=== PATIENT | male | born 1940 ===

== ENCOUNTER 2017-10-31 17:13 | Inpatient (IN) | payer MEDICARE ==
[2017-10-31] MEDS ORDERED: Aspirin 300 MG Suppository ONE (17:22)
[2017-10-31 17:37] LABS: Hemoglobin 16.3 g/dL (14.0-18.0); Mean Corpuscular HGB CONC 34.7 g/dL (32.0-36.0); Mean Corpuscular Hemoglobin 30.8 pg (27.0-31.0); Mean Corpuscular Volume 88.9 fL (78.0-98.0); Mean Platelet Volume 7.8 fL (7.4-10.4); Platelet Count 248 thou/uL (130-400); RBC Distribution Width 12.9 % (11.5-14.5); White Blood Cell (WBC) Count 16.4 thou/uL (4.8-10.8)
[2017-10-31 17:55] LABS: Band 6 % (5-11); Lymphocytes 7 % (21-51); MDiff Complete? YES; Monocytes 5 % (0-10); Neutrophil 82 % (42-75); PLT Morphology Comment Appears Adequate; RBC Morphology Normal; Vacuoles SLIGHT
[2017-10-31] MEDS ORDERED: Succinylcholine Chloride 20 MG/ML 10 ml SYRINGE FS ONE (17:59)
[2017-10-31 18:03] LABS: CKMB 0.5 ng/mL (0-6.6); Troponin I Less than 0.010 ng/mL (< 0.028)
[2017-10-31 18:08] LABS: ALT (SGPT) 13 U/L (8-55); AST (SGOT) 18 U/L (5-34); Albumin 4.7 g/dL (3.4-4.8); Alkaline Phosphatase 65 U/L (40-150); Anion Gap 17 mmol/L (10-20); BUN (Urea Nitrogen) 21 mg/dL (8.4-25.7); Bilirubin, Total 1.1 mg/dL (0.2-1.2); CK (CPK) 51 U/L (30-200); Calc. Creatinine Clearance 0 mL/min (70-130); Calcium 9.8 mg/dL (7.8-10.44); Carbon Dioxide 21 mmol/L (23-31); Chloride 104 mmol/L (98-107); Estimated GFR-MDRD 58; INR-International Normal Ratio 1.1; PTT 29.3 SEC (22.9-36.1); Potassium 4.4 mmol/L (3.5-5.1); Protein, Total 7.7 g/dL (5.8-8.1); Prothrombin Time 14.1 SEC (12.0-14.7); Sodium 138 mmol/L (136-145)
[2017-10-31] MEDS ORDERED: Fentanyl 100 MCG/2 ML VIAL ONE (18:15)
--- NOTE | 2017-10-31 18:26 | CT ---
CT CERVICAL SPINE NONCONTRAST: 10/31/17 HISTORY: 77-year-old male status post cervical trauma from fall. FINDINGS: There are no jumped or perched facets. There is no evidence of acute fracture. The vertebral body h eights are maintained. There is no prevertebral soft tissue swelling. IMPRESSION: No evidence of acute fracture or acute traumatic subluxation. gale [] POS: REED
[2017-10-31] MEDS ORDERED: fentaNYL Citrate/PF 2,000 MCG in Sodium Chloride 0.9% 60 ML IV SCH ×2 (18:39→19:32)
[2017-10-31 18:46] LABS: Actual Bicarbonate (HCO3a) 18.7 mEq/L (22-28); Base Excess (BEa) -5.3 mEq/L (-2.0 to +3.0); CO2 Tension 32.7 mmHg (35.0-45.0); Hemoglobin (Hb) 15.9 g/dL (14.0-18.0); pH, Arterial 7.38 (7.35-7.45)
[2017-10-31 18:47] LABS: Analyzer IN Cardio ER; Calcium, Ionized 1.2 mmol/L (1.12-1.30); Puncture Site LRA
[2017-10-31 18:47] LABS: Glucose 147 mg/dL (83-110)
[2017-10-31 18:48] LABS: ALV-art Gradient 241.925 (0-20)
[2017-10-31 19:29] LABS: Bilirubin Negative (Negative); Blood, Urine Large (Negative); Clarity CLOUDY (Clear); Glucose, Urine (Dipstick) Negative (Negative); Leukocyte Small (Negative); Nitrite Positive (Negative); Protein, Urine (Dipstick) Negative (Neg-Trace); Specific Gravity, Urine 1.025 (1.002-1.036); Urobilinogen 0.2 mg/dL (0.2-1.0); pH, Urine 5.5 (5.0-9.0)
[2017-10-31 19:32] LABS: Hyaline Casts/LPF 0-3 HYALINE CAST LPF (0-3 Hyaline); RBC/HPF 21-50 HPF (0-3); Squamous Epithelial 0-3 HPF (0-3)
[2017-10-31] MEDS ORDERED: Fentanyl BOLUS 250 ML IVPB PRN (19:32)
[2017-10-31] MEDS ORDERED: Propofol 1,000 MG/100 ML VIAL IV PRN (19:32)
[2017-10-31] MEDS ORDERED: Lorazepam 2 MG/ML VIAL SLOW IVP PRN (19:32)
[2017-10-31] MEDS ORDERED: DISCONTINUE PREVIOUS NARCOTIC PAIN MEDICATIONS AND BENZODIAZEPINES FS SCH (19:32)
[2017-10-31] MEDS ORDERED: Propofol BOLUS 1,000 MG/100 ML VIAL IV PRN (19:32)
[2017-10-31 19:34] LABS: Yeast-AUWi Flag 164.8 (0-25.0)
--- NOTE | 2017-10-31 19:38 | RAD ---
FRONTAL VIEW CHEST: 10/31/17 COMPARISON: 07/20/09 INDICATION: Altered mental status. FINDINGS: There is enlargement of the cardiac silhouette and pulmonary vasculature with interstitial reticulono dular opacities bilaterally. Numerous extrinsic artifacts limit visualization. Patient is rotated obs curing detail. IMPRESSION: Findings indicate decompensated CHF. Superimposed infectious pneumonitis not excluded. Recommend clinical correlation as well as imaging followup. POS: REED
[2017-10-31 19:43] LABS: Bacteria/HPF 2+ HPF (None Seen); Renal Epithelial None Seen HPF (0-3); Transitional Epithelial NONE SEEN HPF (0-3); Yeast-All Forms None Seen HPF (None Seen)
--- NOTE | 2017-10-31 19:45 | CT ---
CT BRAIN NONCONTRAST: DATE: 10/31/17 TIME: 5:31 p.m. HISTORY: 77-year-old male with altered mental status. COMPARISON: 07/20/09. FINDINGS: There is a new finding of a very large region of moderately low attenuation involving right frontal, parietal, and temporal lobes. This is confluent and inseparable from a moderately elongated (in anter oposterior dimension) region of similar moderately low attenuation of the right parasagittal frontal and parietal lobes. These represent large and moderately large, acute or subacute infarctions in the right MCA and right EDILMA territories, respectively. There is a moderate sized region of left lateral temporoparietal region of low attenuation which prob ably represents encephalomalacia and gliosis, consistent with a nonacute infarction in the left MCA t erritory, favored to be old. There is a dilated [place] space at the inferior aspect of the le ft basal ganglia which should not be mistaken for an old lacunar infarction. No obstructive hydroceph alus, acute intracranial hemorrhage, mass effect, midline shift, or extra-axial fluid collection. No depressed calvarial fracture. The paranasal sinuses and the bilateral tympanomastoid cavities are rodriguez ssly clear, except for polypoid mucosal thickening throughout the right sphenoid air cell. IMPRESSION: 1. Large acute or subacute infarction in the right middle cerebral artery territory. 2. Moderately large acute or subacute infarction in the right anterior cerebral artery territory . 3. Moderate sized infarction, probably old, in the left middle cerebral artery territory. 4. No acute intracranial hemorrhage or high grade mass effect. JEREMIAS Duncan POS: REED
[2017-10-31] MEDS: Sodium Chloride 0.9% 1,000 ML IV SCH (19:55)
[2017-10-31 20:02] VITALS: BMI 26.0
--- NOTE | 2017-10-31 20:20 | RAD ---
FRONTAL VIEW CHEST: 10/31/17 COMPARISON: 07/20/09. INDICATION: Post intubation. FINDINGS: There is an endotracheal tube with tip overlying the tracheal air column just cephalad to the level o f the thoracic inlet. The cardiomediastinal silhouette and pulmonary vasculature are prominent. No si gnificant effusion or discrete pneumothorax. Extrinsic artifacts do limit detail. Incompletely assess ed, there is a coiled catheter tip overlying the mediastinum. This may reside within a large hiatal h ernia. IMPRESSION: 1. Endotracheal tube overlying the tracheal air column at the cephalad aspect of the thoracic in let. 2. CHF. 3. Enteric catheter likely coiled within a large hiatal hernia. Recommend advancement and follow up imaging for continued assessment. POS: REED
[2017-10-31] MEDS: Piperacillin/Tazobactam 3.375 GM in Sodium Chloride 0.9% 100 ML IVPB SCH (20:25)
--- NOTE | 2017-10-31 21:01 | HP ---
CHIEF COMPLAINT: Altered mental status. HISTORY OF PRESENT ILLNESS: The patient is a 77-year-old male with a past medical history of possibl e hypertension who was found unconscious in his home today. All the history is being obtained from [facility] staff and per records. Apparently, the patient was alert on Tuesday after the son and spoke with the patient. The patient apparently did not come out to take his newspaper, so the neighbors k ind of went in to see what was going on, found the patient sitting on the chair unconscious. At this time, EMS was called. EMS brought the patient into the ER. Apparently, I was told that the patient 's eyes were open; however, he was not following any commands. The patient was intubated in the ER f or airway protection. He did have a CT of the brain which indicated right MCA and EDILMA stroke. Jordin miller also had a C-spine CAT scan done which was negative. The patient also had a chest x-ray done wh h indicated some congestion versus infiltrate. PAST MEDICAL HISTORY: Possible hypertension; however, unable to verify. SOCIAL HISTORY: Unknown, patient is unable to provide this and no family member around. FAMILY HISTORY: Unknown. No family member around. ALLERGIES: No known drug allergies. MEDICATIONS: I was told the patient takes metoprolol. REVIEW OF SYSTEMS: Unable to obtain. PHYSICAL EXAMINATION: VITAL SIGNS: As of the following, temperature of 100.2, O2 saturations 100% on FIO2 of 40. Blood pr essure 125/67, pulse of 63, respirations of 16. GENERAL: He is intubated, unresponsive. HEENT: Normocephalic, atraumatic. LUNGS: Clear to auscultation. No rhonchi or wheezes noted. CARDIOVASCULAR: S1, S2 present. No murmurs, rubs or gallops. ABDOMEN: Soft. Bowel sounds are present. NEUROLOGIC: Unable to do neuro exam. SKIN: No rashes or lesions noted. LABORATORY DATA: As of the following: He does have sodium of 138, potassium of 4.4, chloride of 104 , bicarbonate of 21, anion gap of 17, glucose of 147, does have a lactic acid of 2.6. WBCs of 16.4, hemoglobin of 16.3, hematocrit of 47.1, platelets of 248. His pH was 7.38 with a pO2 of 147 and a CO 2 of 32.7. ASSESSMENT AND PLAN: The patient is a very pleasant 77-year-old male who was found unresponsive. 1. Acute stroke, unknown timing. Patient was last seen normal on Tuesday. Neurosurgery and Neurol ogy both have been consulted. We will start the patient on stroke protocol, also currently patient i s intubated. 2. Possible aspiration pneumonia. The patient does have a mild leukocytosis and has some lactic aci dosis which could be secondary to being unconscious; however, prophylactically we will start the malaika ent on some antibiotics to cover for aspiration pneumonia. 3. Hypertension. Currently, the patient's blood pressure is stable. We will continue to monitor. 4. Lactic acidosis, most likely secondary to being unconscious. Again, we will continue to monitor. We will start some IV hydration and also will continue antibiotics. 5. Deep venous thrombosis prophylaxis. We will put the patient on sequential compression devices or heparin subQ. I did tell the ER to notify the cane flume watchman of the patient's admission and the family is on their way. I will get more information once family arrives.
--- NOTE | 2017-10-31 21:24 | CON ---
DATE OF CONSULTATION: 10/31/2017 ATTENDING PHYSICIAN: Trell Peng M.D. HISTORY OF PRESENT ILLNESS: The patient is a 77-year-old male with a past medical history of hypertension and hyperlipidemia who presented to the emergency department per EMS after being found down by his family. History obtained through EMS and ER records. No family at bedside. The patient was reportedly last seen normal on Tuesday. Upon arrival the patient had a GCS of 6, E1, V1, M3. CT head was done shortly after arrival and the patient was found to have a large right MCA infarct. He was intubated for airway protection and evaluated with additional lab work, which was also notable for elevated lactic acid of 2.6, elevated white blood cell count of 16,000 with a left shift. Neurology was consulted for further evaluation of his acute infarct and they also recommended neurosurgical consultation secondary to infarcts significant size. I am seeing the patient at the bedside. His exam is limited by his recent intubation and medication administration. His pupils are small, equal and sluggish. He has a positive gag reflex. He has a positive corneal reflex. He is posturing. He has decorticate posturing in the upper extremities, but withdraws briskly over the lower extremities. He is overbreathing in the ventilator. PAST MEDICAL HISTORY: Hypertension, hyperlipidemia. PAST SURGICAL HISTORY: Unobtainable. SOCIAL HISTORY: Unobtainable. ALLERGIES: The patient has no known drug allergies. REVIEW OF SYSTEMS: Unobtainable secondary to patient condition. PHYSICAL EXAMINATION: VITAL SIGNS: Pulse is 64, BP is 143/82, respiration rate is 18. Patient is currently being mechanically ventilated. He is 100% on the ventilator. HEAD: Normocephalic, atraumatic. EYES: Pupils are equal, small, sluggish. ENT: The patient currently has an endotracheal intubation tube in place. He has a positive gag reflex. CARDIOVASCULAR: Regular rate and rhythm. PULMONARY: The patient has symmetric chest expansion. He is currently being mechanically ventilated. MUSCULOSKELETAL: No obvious deformities. Good capillary refill throughout. NEUROLOGIC: GCS is 6, E1, V1, M4. ASSESSMENT AND PLAN: This is a 77-year-old male, found down today, last seen normal [address] head is notable for a large right middle cerebral artery infarct. I reviewed these images with Dr. Peng as well as discussed the patient's presentation and current condition. His CT appears to be mature at this time. There is no midline shift or mass effect. At this time, we have no acute neurosurgical recommendations, but we are available for any additional questions or concerns. Please reach out to Neurosurgery if these would arise. AKI
[2017-11-01] MEDS: Piperacillin/Tazobactam 3.375 GM in Sodium Chloride 0.9% 100 ML IVPB SCH ×4 (02:09→20:00)
[2017-11-01] MEDS ORDERED: Acetaminophen 325 MG TAB PO PRN (02:29)
[2017-11-01 05:35] LABS: Cardiac Risk 4.4 (Less than 4.5)
--- NOTE | 2017-11-01 08:13 | PDOC.EVN ---
Event Note - Event Note Event Note: spoke with neurosurgery and no intervention from their end. will continue to monitor.
[2017-11-01 08:35] LABS: Actual Bicarbonate (HCO3a) 20.6 mEq/L (22-28); Base Excess (BEa) -2.3 mEq/L (-2.0 to +3.0); CO2 Tension 30.4 mmHg (35.0-45.0); Hemoglobin (Hb) 14.7 g/dL (14.0-18.0); pH, Arterial 7.45 (7.35-7.45)
[2017-11-01 08:36] LABS: Calcium, Ionized 1.1 mmol/L (1.12-1.30); Puncture Site RRA
[2017-11-01] MEDS: Sodium Chloride 0.9% 1,000 ML IV SCH (09:50)
--- NOTE | 2017-11-01 11:17 | MRI ---
HEAD CT WITHOUT CONTRAST: HISTORY: The patient was found down yesterday, unresponsive. COMPARISON: None. TECHNIQUE: A brain MRI is performed without intravenous Gadolinium administration. Multisequential, multiplanar imaging is performed. FINDINGS: Calvarium has a normal marrow signal intensity. Midline brain parenchymal structures are unremarkabl e. There is extensive T2 and FLAIR hyperintensity with associated restricted diffusion involving the ant erior corpus callosum, medial left frontal lobe, the majority of the right MCA and EDILMA distribution. Multifocal infarct is suspected. No evidence of infarction in the posterior fossa. There is mild mass effect upon the right ventricular system due to edema from right cerebral infarct. No hemorrhage on the axial gradient echo sequence. Mild mucosal disease involving the paranasal sinuses. Questionable decreased flow void in the mid ri ght M1 segment on the axial T2 weighted images. Additionally, there appears to be a decreased flow v oid possibly in the right paraclinoid segment. There is peripheral T2 hyperintensity involving the d istal cervical and cavernous portion of the right internal carotid artery. Etiology and significance is uncertain. The possibility of a right carotid dissection cannot be excluded. IMPRESSION: 1. Extensive bilateral cerebral infarcts as described above. 2. Abnormality involving the distal cervical right internal carotid artery as well as the intracrani al right internal carotid artery as described above. POS: REED
--- NOTE | 2017-11-01 11:23 | CON ---
DATE OF CONSULTATION: 11/01/2017 HISTORY: This is a 77-year-old gentleman. History obtained from the patient's [id number]. He sees a Dr. Pop at [facility]. He was last seen by anybody at 12 on Tuesday, he went out with his brot her for lunch. He was doing well. He has found home unresponsive. On arrival to the ER he was intu bated to protect his airways. He has had a large CVA. According to his [id number] the patient does not smoke, does not drink. PAST MEDICAL HISTORY: Pertinent for hypertension. PAST SURGICAL HISTORY: Apparently some kind of a right leg fracture with a candida inside. The patient has got scoliosis, but he is very active. SOCIAL/FAMILY HISTORY: He worked at [employer] for many years. MEDICATIONS: From home includes mainly blood pressure medication. List given by the [id number] includes bisoprolol 5/6.25, lisinopril 40, simvastatin 20. ALLERGIES: None. REVIEW OF SYSTEMS: Otherwise unobtainable, he is intubated on the vent, unresponsive. PHYSICAL EXAMINATION: VITAL SIGNS: Pulse 51, blood pressure 120/80, sats 90%, respiration 14. HEENT: Pupils are equal. CHEST: Chest reveals no wheezing or crackles. CARDIAC: Normal S1, S2, no gallops. ABDOMEN: Soft. NEUROLOGIC: Unresponsive. LABORATORY: His glucose is 122. His chest x-ray shows a large hiatal hernia, maybe some cephalization. His pO2 is 80, pCO2 30, pH 7.45, rate of 14, 30% FiO2. Creatinine 1.2. His CT of his head showed a large subacute infarct in the right middle cerebral artery territory and old left middle cerebral artery infarct. IMPRESSION: 1. Right middle cerebral artery infarct. 2. 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 3. Hypertension. 4. Large hiatal hernia. 5. Possibly aspiration. PLAN: Pulmonary-street, continue vent support. He is scheduled for an MRI. Will await input from Davey pierce. Comfort care. Prognosis guarded. Forty-five minutes critical care time.
--- NOTE | 2017-11-01 12:13 | PRG ---
DATE OF SERVICE: 11/01/2017 This is a 30 minute initial hospital visit note in which 30 minutes were spent in review of the imagi ng, record, evaluation, examination of patient, and formulation of a plan. Greater than 50% of the t barb was spent in counseling. CHIEF COMPLAINT: Large right anterior middle cerebral artery infarct with history of left middle cer ebral artery infarct. HISTORY OF PRESENT ILLNESS: Mr. Bal is a 77-year-old man who was found down, hemiplegic on the left side. He has a history in 07/2009 with a period of aphasia and imaging at that time revealed fi ndings consistent with a left temporal stroke. He recovered well from this with mild dysphasia; corrales blaze, a review of his head CT and MRI demonstrates essentially complete diffusion restriction througho ut the right hemisphere involving the anterior and middle cerebral artery distribution and only a por tion of brain not affected essentially as the right posterior cerebral artery distribution or medial occipital lobe. He has T2 shine through in the left temporal region related to encephalomalacia from his remote stroke. We have been consulted regarding neurosurgical option. PHYSICAL EXAMINATION: He is intubated. Sedation has been off since this morning. He very weakly lo calizes in the bilateral upper extremities, but this is much more delayed in the left compared to the right. He has positive corneal response in the right, very weak in the left. His pupils are equal, symmetric, round, reactive at 3-2 mm. IMPRESSION AND PLAN: I have let the patient's ijkzduvf-[id number] know that I would not at all recommend a hemicraniectomy. The size of infarct, his age and the fact that he has had bilateral strokes hany khushi the likelihood of a very poor outcome. I have offered my condolences in this regard and again w ould not recommend any neurosurgical intervention. I should note he is already demonstrating cerebra l edema with midline shift and mass effect and as such, I suppose mannitol may be used while the malaika ent's son who is a industrial truck driver, is en route, but I have let the family present know that the typical course here is that the brain will continue to swell and the mass effect will increase and a ventral herniation will result with the patient succumbing to the pathology. DIAGNOSES: 1. 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 2. History of left middle cerebral artery stroke.
[2017-11-02] MEDS: Sodium Chloride 0.9% 1,000 ML IV SCH ×2 (01:53→11:39)
[2017-11-02] MEDS: Piperacillin/Tazobactam 3.375 GM in Sodium Chloride 0.9% 100 ML IVPB SCH ×4 (02:00→20:00)
--- NOTE | 2017-11-02 06:14 | PDOC.PN ---
- Subjective Encounter Start Date: 11/01/17 Encounter Start Time: 10:00 Subjective: pt intubated, daughter in law by bedside updated - Objective Resuscitation Status: Resuscitation Status DNR:Do Not Resuscitate Vital Signs & Weight: Vital Signs (12 hours) Temp Pulse Resp BP 11/02/17 04:00 98.8 F 11/02/17 02:37 68 134/66 11/02/17 02:00 18 11/02/17 00:00 98.8 F 11/01/17 22:15 66 120/65 11/01/17 22:00 17 11/01/17 18:37 67 140/57 L Weight Admit Weight 192 lb 0.362 oz Weight 192 lb 0.362 oz Most Recent Monitor Data Heart Rate from ECG 64 NIBP 126/67 NIBP BP-Mean 108 Respiration from ECG 17 SpO2 96 I&O: 10/31/17 11/01/17 11/02/17 06:59 06:59 06:59 Intake Total 1058.4 948 Output Total 858 1043 Balance 200.4 -95 Result Diagrams: 10/31/17 17:22 10/31/17 17:22 Additional Labs: Accuchecks 11/02/17 11/01/17 11/01/17 01:50 16:56 11:41 POC Glucose 116 H 126 H 135 H Phys Exam - Physical Examination Neck: no nodes, no JVD, supple, full ROM Respiratory: no wheezing, no rales, no rhonchi, wheezing present, clear to auscultation bilateral Cardiovascular: RRR, no significant murmur, no rub, gallop, irregular Gastrointestinal: soft, non-tender, no distention, positive bowel sounds mild withdrawal on the left side to deep pain stimuli Dx/Plan (1) Acute respiratory failure Code(s): J96.00 - ACUTE RESPIRATORY FAILURE, UNSP W HYPOXIA OR HYPERCAPNIA Status: Acute (2) Ischemic stroke Code(s): I63.9 - CEREBRAL INFARCTION, UNSPECIFIED Status: Acute (3) Aspiration pneumonia Code(s): J69.0 - PNEUMONITIS DUE TO INHALATION OF FOOD AND VOMIT Status: Acute (4) Acute right MCA stroke Code(s): I63.511 - CEREB INFRC D/T UNSP OCCLS OR STENOS OF RIGHT MID CEREB ART Status: Acute (5) HTN (hypertension) Code(s): I10 - ESSENTIAL (PRIMARY) HYPERTENSION Status: Acute - Plan pt intubated, mri pending -: updated daughter in law -: over all outcome poor -: possible for cerebral edema given such a large area of stroke. * . Review of Systems - Review of Systems Other: pt intubated - Medications/Allergies Allergies/Adverse Reactions: Allergies Allergy/AdvReac Type Severity Reaction Status Date / Time No Known Allergies Allergy Verified 10/31/17 20:07 Medications: Current Medications Acetaminophen (Tylenol) 650 mg PO Q6H PRN PRN Reason: Fever or MILD Pain (1-3) Last Admin: 11/01/17 02:45 Dose: 650 mg Piperacillin Sod/Tazobactam (Sod 3.375 gm/ Sodium Chloride) 100 mls @ 200 mls/ hr IVPB 0200,0800,1400,2000 BRANDYN Last Admin: 11/01/17 20:00 Dose: 100 mls Sodium Chloride (Normal Saline 0.9%) 1,000 mls @ 75 mls/hr IV .[id number] BRANDYN Last Admin: 11/02/17 01:53 Dose: 1,000 mls Fentanyl Citrate 2,000 mcg/ (Sodium Chloride) 100 mls @ 0 mls/hr IV INF BRANDYN; Protocol Stop: 11/30/17 19:32 Fentanyl Citrate (Fentanyl Bolus) 250 mls @ 0 mls/hr IVPB PRN PRN PRN Reason: Breakthrough pain/agitation Stop: 11/30/17 19:32 Lorazepam (Ativan) 2 mg SLOW IVP Q1H PRN PRN Reason: Breakthrough agitation Stop: 11/30/17 19:32 Morphine Sulfate (Morphine Sulfate) 2 mg SLOW IVP Q1H PRN PRN Reason: BREAKTHROUGH PAIN/AGITATION Stop: 11/30/17 19:32 Discontinue Previous Narcotic Pain Medications And Benzodiazepines 1 each FS .ONE BRANDYN Stop: 11/30/17 19:32 Propofol (Diprivan) 1,000 mg IV INF PRN; Protocol PRN Reason: TO ACHIEVE GOAL RASS Stop: 11/30/17 19:32 Propofol (Diprivan Bolus) 20 mg IV Q5MIN PRN PRN Reason: BREAKTHROUGH AGITATION Stop: 11/30/17 19:32 Sodium Chloride (Flush - Normal Saline) 10 ml IVF PRN PRN PRN Reason: Saline Flush
--- NOTE | 2017-11-02 06:39 | CON ---
DATE OF CONSULTATION: 11/01/2017 REASON FOR CONSULTATION: Stroke. PRIMARY CARE PHYSICIAN: Dr. Marlyn Stallworth HISTORY OF PRESENT ILLNESS: Mr. Bal is a 77-year-old male who has been consulted for evaluation of stroke. History is obtained from the patient's medical records as well as the patient' s family. Apparently the patient was found unconscious in his home. He was in his normal state of h ealth on Tuesday when son and his spoke with him. On Tuesday, he did not come out to take his _ ___ with the neighbor. Neighbors went to see what was going on and found the patient sitting on the chair unresponsive. At that time EMS was called and he was brought to [facility]. Af ter arriving to the [facility] he was intubated to provide airway protection. He had CT head without contrast done, which showed a large area of hyperdensity involving the right MCA and EDILMA territory with vasogenic edema and midline shift. PAST MEDICAL HISTORY/PAST SURGICAL HISTORY/SOCIAL HISTORY/FAMILY HISTORY/CURRENT MEDICATIONS/ALLERGIE S: Could not be obtained. REVIEW OF SYSTEMS: Unable to perform. PHYSICAL EXAMINATION: VITAL SIGNS: Blood pressure of 121/55, pulse of 60, respirations of 19 on mechanical ventilation, te mperature of 99.9. GENERAL: Intubated, nonsedated male in no apparent distress. RESPIRATORY: Clear to auscultation bilaterally. CARDIOVASCULAR: Regular rate and rhythm. NEUROLOGIC: Mental status: The patient is intubated and not sedated. He is nonresponsive to verbal or noxious stimuli. Cranial nerves: Pupils are 3 mm and reactive. He has a positive corneal refle x bilaterally. He does breathe over the ventilator machine. There is a positive cough and gag refle x present. Motor exam showed flaccid left upper and left lower extremity. He spontaneously moves ri ght upper and right lower extremity. He was squeezing my hand with his right hand involuntarily with a very good strength. He did not have any response to nailbed pressure on the left upper and left lo wer extremity. LABORATORY DATA: Reviewed, which included CBC, CMP and urinalysis, which is significant for WBC of 1 6.4. Lactic acid of 2.6. Urinalysis with positive nitrites, small leukocyte esterase, 11-20 WBC and 2+ bacteria, otherwise unremarkable. IMAGING STUDIES: MRI brain without contrast was reviewed, which showed large right MCA and EDILMA distr ibution ischemic infarct with worsening edema and midline shift. IMPRESSION: 1. Large right MCA and EDILMA territory ischemic infarct. 2. Cerebral edema secondary to #1. ASSESSMENT AND PLAN: Mr. Bal is a 77-year-old male who presented after being found un responsive. He is found to have large right MCA and EDILMA territory ischemic infarct with resulting va sogenic edema and midline shift. This is likely cardioembolic in nature. The prognosis is very poor for this patient. I had a discussion with his son and [id number] and explained the findings of the MRI scan and explained that the prognosis remains poor due to the size of the stroke. Given jorge t he had a prior left MCA stroke in 2009, the prognosis is extremely poor. The patient's daughter-in -law had spoken with Dr. Stevenson who had said that this is a nonsurgical candidate. I agree with Dr. Stevenson, I would not recommend any craniotomy to help relieve the pressure as it would not help in his quality of life. Continue supportive care. Thank you for the consultation.
[2017-11-02 07:24] LABS: Actual Bicarbonate (HCO3a) 19.1 mEq/L (22-28); Base Excess (BEa) -3.8 mEq/L (-2.0 to +3.0); CO2 Tension 28.5 mmHg (35.0-45.0); Calcium, Ionized 1.1 mmol/L (1.12-1.30); Hemoglobin (Hb) 12.7 g/dL (14.0-18.0); O2 Tension (PaO2) 85.4 mmHg (> 70.0); Puncture Site LRA; pH, Arterial 7.44 (7.35-7.45)
[2017-11-02 07:25] LABS: ALV-art Gradient 92.875 (0-20)
--- NOTE | 2017-11-02 09:28 | PRG ---
DATE OF SERVICE: 11/02/2017 He was admitted to the ICU, intubated on the vent, pretty much unresponsive, upgoing toes. PHYSICAL EXAMINATION: VITAL SIGNS: Blood pressure 146/72, respirations 13, temperature is 98, sats 96%. CHEST: No wheezing or crackles. CARDIAC: Normal S1, S2. No gallops. ABDOMEN: Soft, no masses. LABORATORY: PO2 is 85, pCO2 20.44, rate of 10. IMPRESSION: 1. A large right middle cerebral artery infarct. 2. Metabolic encephalopathy. PLAN: As per the family's wishes, he presently is a DNR. We are trying to do comfort care. Supportive care. One-half hour of critical care time.
--- NOTE | 2017-11-02 19:48 | PDOC.PN ---
- Subjective Encounter Start Date: 11/02/17 Encounter Start Time: 10:30 Subjective: pt intubated, family at bedside - Objective Resuscitation Status: Resuscitation Status DNR:Do Not Resuscitate Vital Signs & Weight: Vital Signs (12 hours) Temp Pulse Resp BP Pulse Ox 11/02/17 19:10 60 123/54 L 11/02/17 18:00 18 11/02/17 16:00 98.7 F 16 11/02/17 15:31 65 132/70 11/02/17 14:00 21 H 11/02/17 12:00 98.6 F 17 11/02/17 10:34 68 119/59 L 11/02/17 10:00 15 11/02/17 08:00 98.4 F 103 H 13 98 Weight Admit Weight 192 lb 0.362 oz Weight 192 lb 0.362 oz Most Recent Monitor Data Heart Rate from ECG 62 NIBP 123/54 NIBP BP-Mean 97 Respiration from ECG 23 SpO2 97 I&O: 11/01/17 11/02/17 11/03/17 06:59 06:59 06:59 Intake Total 1058.4 2001 795 Output Total 858 1173 565 Balance 200.4 828 230 Result Diagrams: 10/31/17 17:22 10/31/17 17:22 Additional Labs: Accuchecks 11/02/17 11/02/17 06:32 01:50 POC Glucose 100 116 H Phys Exam - Physical Examination Neck: no nodes, no JVD, supple, full ROM Cardiovascular: RRR, no significant murmur, no rub, gallop, irregular Gastrointestinal: soft, non-tender, no distention, positive bowel sounds Musculoskeletal: no edema, pulses present, edema present Dx/Plan (1) Acute respiratory failure Code(s): J96.00 - ACUTE RESPIRATORY FAILURE, UNSP W HYPOXIA OR HYPERCAPNIA Status: Acute (2) Ischemic stroke Code(s): I63.9 - CEREBRAL INFARCTION, UNSPECIFIED Status: Acute (3) Aspiration pneumonia Code(s): J69.0 - PNEUMONITIS DUE TO INHALATION OF FOOD AND VOMIT Status: Acute (4) Acute right MCA stroke Code(s): I63.511 - CEREB INFRC D/T UNSP OCCLS OR STENOS OF RIGHT MID CEREB ART Status: Acute (5) HTN (hypertension) Code(s): I10 - ESSENTIAL (PRIMARY) HYPERTENSION Status: Acute - Plan spoke with family and explained the outcome of pt -: continue abx for now. -: mri indicates significant stroke on right and prior left mca stroke -: poor prognosis overall * . Review of Systems - Review of Systems Other: intubated - Medications/Allergies Allergies/Adverse Reactions: Allergies Allergy/AdvReac Type Severity Reaction Status Date / Time No Known Allergies Allergy Verified 10/31/17 20:07 Medications: Current Medications Acetaminophen (Tylenol) 650 mg PO Q6H PRN PRN Reason: Fever or MILD Pain (1-3) Last Admin: 11/01/17 02:45 Dose: 650 mg Piperacillin Sod/Tazobactam (Sod 3.375 gm/ Sodium Chloride) 100 mls @ 200 mls/ hr IVPB 0200,0800,1400,2000 BRANDYN Last Admin: 11/02/17 16:36 Dose: 100 mls Sodium Chloride (Normal Saline 0.9%) 1,000 mls @ 75 mls/hr IV .[id number] BRANDYN Last Admin: 11/02/17 11:39 Dose: 1,000 mls Fentanyl Citrate 2,000 mcg/ (Sodium Chloride) 100 mls @ 0 mls/hr IV INF BRANDYN; Protocol Stop: 11/30/17 19:32 Fentanyl Citrate (Fentanyl Bolus) 250 mls @ 0 mls/hr IVPB PRN PRN PRN Reason: Breakthrough pain/agitation Stop: 11/30/17 19:32 Lorazepam (Ativan) 2 mg SLOW IVP Q1H PRN PRN Reason: Breakthrough agitation Stop: 11/30/17 19:32 Morphine Sulfate (Morphine Sulfate) 2 mg SLOW IVP Q1H PRN PRN Reason: BREAKTHROUGH PAIN/AGITATION Stop: 11/30/17 19:32 Discontinue Previous Narcotic Pain Medications And Benzodiazepines 1 each FS .ONE BRANDYN Stop: 11/30/17 19:32 Propofol (Diprivan) 1,000 mg IV INF PRN; Protocol PRN Reason: TO ACHIEVE GOAL RASS Stop: 11/30/17 19:32 Propofol (Diprivan Bolus) 20 mg IV Q5MIN PRN PRN Reason: BREAKTHROUGH AGITATION Stop: 11/30/17 19:32 Sodium Chloride (Flush - Normal Saline) 10 ml IVF PRN PRN PRN Reason: Saline Flush
[2017-11-03] MEDS: Piperacillin/Tazobactam 3.375 GM in Sodium Chloride 0.9% 100 ML IVPB SCH ×2 (03:02→07:42)
[2017-11-03] MEDS: Sodium Chloride 0.9% 1,000 ML IV SCH ×2 (03:04→15:39)
--- NOTE | 2017-11-03 08:50 | PRG ---
DATE OF SERVICE: 11/03/2017 SUBJECTIVE: Day #03 on the vent, massive CVA, right-sided, still pretty much unresponsive. His son is at the bedside. He wants comfort care, extubation. OBJECTIVE: VITAL SIGNS: Sats are 95%, pulse 80, blood pressure 130/80, respiration rate 18. HEENT: Pupils are equal. CHEST: Chest reveals decreased breath sounds, no wheezing. CARDIAC: Normal S1, S2, no gallops. ABDOMEN: Soft. IMPRESSION: 1. Cerebrovascular accident. 2. Respiratory failure. 3. Possibly aspiration pneumonia. PLAN: Extubate when okay with family. Comfort care. He is a DNR. Palliative care has seen the patient. One-half hour critical care time.
[2017-11-03 10:11] VITALS: BP 125/63
--- NOTE | 2017-11-03 15:04 | PDOC.PN ---
- Subjective Encounter Start Date: 11/03/17 Encounter Start Time: 10:00 Subjective: pt extubated by respiratory - Objective Resuscitation Status: Resuscitation Status DNR:Do Not Resuscitate Vital Signs & Weight: Vital Signs (12 hours) Temp Pulse Resp BP Pulse Ox 11/03/17 12:00 98.9 F 92 L 11/03/17 10:08 73 125/63 11/03/17 10:00 20 11/03/17 08:00 12 11/03/17 07:51 61 119/59 L 11/03/17 07:09 99.1 F 61 16 97 11/03/17 07:00 99.1 F 11/03/17 05:57 16 11/03/17 04:00 98.8 F 12 Weight Admit Weight 192 lb 0.362 oz Weight 192 lb 0.362 oz Most Recent Monitor Data Heart Rate from ECG 69 NIBP 126/66 NIBP BP-Mean 96 Respiration from ECG 26 SpO2 94 I&O: 11/02/17 11/03/17 11/04/17 06:59 06:59 06:59 Intake Total 2000 Output Total 1173 1270 415 Balance 828 830 -315 Result Diagrams: 10/31/17 17:22 10/31/17 17:22 Phys Exam - Physical Examination mild rhonchi Cardiovascular: RRR, no significant murmur, no rub, gallop, irregular Gastrointestinal: soft, non-tender, no distention, positive bowel sounds Dx/Plan (1) Acute respiratory failure Code(s): J96.00 - ACUTE RESPIRATORY FAILURE, UNSP W HYPOXIA OR HYPERCAPNIA Status: Acute (2) Ischemic stroke Code(s): I63.9 - CEREBRAL INFARCTION, UNSPECIFIED Status: Acute (3) Aspiration pneumonia Code(s): J69.0 - PNEUMONITIS DUE TO INHALATION OF FOOD AND VOMIT Status: Acute (4) Acute right MCA stroke Code(s): I63.511 - CEREB INFRC D/T UNSP OCCLS OR STENOS OF RIGHT MID CEREB ART Status: Acute (5) HTN (hypertension) Code(s): I10 - ESSENTIAL (PRIMARY) HYPERTENSION Status: Acute - Plan pt extubated today -: will continue comfort measures -: morphine ordered * . Review of Systems - Review of Systems Other: not responsive - Medications/Allergies Allergies/Adverse Reactions: Allergies Allergy/AdvReac Type Severity Reaction Status Date / Time No Known Allergies Allergy Verified 10/31/17 20:07 Medications: Current Medications Acetaminophen (Tylenol) 650 mg PO Q6H PRN PRN Reason: Fever or MILD Pain (1-3) Last Admin: 11/01/17 02:45 Dose: 650 mg Sodium Chloride (Normal Saline 0.9%) 1,000 mls @ 75 mls/hr IV .[id number] BRANDYN Last Admin: 11/03/17 03:04 Dose: 1,000 mls Morphine Sulfate (Morphine) 2 mg SLOW IVP Q4H PRN PRN Reason: Pain Sodium Chloride (Flush - Normal Saline) 10 ml IVF PRN PRN PRN Reason: Saline Flush
[2017-11-03 16:10] VITALS: TEMP 98.8
== END 2017-11-03 20:15 | disposition hospice, inpatient (51) | DRG 64 ==
LOC: ERS 17:13 → CCU 19:18
PROVIDERS: ADMIT Internal Medicine; ATTEND Internal Medicine
PROC: 5A1945Z Respiratory Ventilation, 24-96 Consecutive Hours (ICD-10-PCS; principal; 2017-10-31)
PROC: 0BH17EZ Insertion of Endotracheal Airway into Trachea, Via Natural or Artificial Opening (ICD-10-PCS; 2017-10-31)
DX: I63.511 Cerebral infarction due to unspecified occlusion or stenosis of right middle cerebral artery (principal); J69.0 Pneumonitis due to inhalation of food and vomit; G93.6 Cerebral edema; J96.00 Acute respiratory failure, unspecified whether with hypoxia or hypercapnia; G93.41 Metabolic encephalopathy; E87.2 Acidosis; G81.94 Hemiplegia, unspecified affecting left nondominant side; R29.736 NIHSS score 36; I69.321 Dysphasia following cerebral infarction; K44.9 Diaphragmatic hernia without obstruction or gangrene; I10 Essential (primary) hypertension; E78.5 Hyperlipidemia, unspecified; Z66 Do not resuscitate; Z51.5 Encounter for palliative care
CPT/HCPCS: 31500; 36415; 36416; 51702; 70450; 70551; 71045; 72125; 80053; 80061; 81001; 82140; 82553; 82805; 83605; 84484; 85025; 85610; 85730; 87040; 93005; 93306; 94002; 94003; 94760; 96361; 96374; 96375; 99292; J2060; J2543; J3010; J7050